=== PATIENT | male | born 2000 | race Caucasian/White ===

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

== ENCOUNTER 2020-10-31 08:07 | Outpatient (CLI) | payer OTHER, SELFPAY ==
--- NOTE | ~2020-10-31 | CT_ITS ---
EXAMINATION: CT brain wo con DATE: 10/31/2020 08:31 INDICATION: Right facial numbness. Right eyelid weakness. TECHNIQUE: Computed tomography (CT) of the head was performed without intravenous contrast. The mA wa s adjusted according to patient size. Iterative reconstruction technique was employed. The dose-lengt h product was 681.00 mGy-cm. COMPARISON: None FINDINGS: There is no intracranial hemorrhage, acute infarction, or abnormal intracranial mass lesion . The ventricles are normal in size. There is mild mucosal thickening in the ethmoid sinuses. The mas toid air cells are normal. The orbits are normal. IMPRESSION: 1. Normal brain. Reviewed, dictated and finalized at [facility]. IMPRESSION: 1. Normal brain.
== END 2020-10-31 08:08 | disposition home or self-care (01) ==
LOC: ANHIMG 08:12
PROVIDERS: PCP Family Medicine; Visit Provider Physician Assistant
DX: R20.0 Anesthesia of skin (principal); H02.401 Unspecified ptosis of right eyelid
CPT/HCPCS: 70450

== ENCOUNTER 2020-11-29 17:56 | Emergency (ER) | payer OTHER, SELFPAY ==
--- NOTE | ~2020-11-29 | US_ITS ---
EXAMINATION: US scrotum doppler DATE: 11/29/2020 18:39 INDICATION: Right testicular swelling and pain. TECHNIQUE: Grayscale and Doppler ultrasound images of the testes were obtained. COMPARISON: None. FINDINGS: The right testis measures 4.1 x 4.8 x 2.3 cm. The left testis measures 4.4 x 3.0 x 2.9 cm. There is normal vascular flow to both testes. The right epididymis is normal with normal vascular nancy w. The left epididymis is normal with normal vascular flow. There is no varicocele or hydrocele. IMPRESSION: 1. Normal testes. Reviewed, dictated and finalized at location [facility]. IMPRESSION: 1. Normal testes.
[2020-11-29 17:57] VITALS: BP 134/74; PULSE 79; RESP 16; TEMP 36; O2SAT 99
--- NOTE | 2020-11-29 18:28 | ED.MALEGU ---
HPI - Male Genitourinary General Chief complaint: Urogenital-Male Stated complaint: enlarged testicle Time Seen by Provider: 11/29/20 18:01 Source: patient Mode of arrival: ambulatory Limitations: no limitations History of Present Illness HPI Narrative: Patient is a 20 year old male who presents with right testicular pain and swelling. Patient reports swelling to testicle x 4 days. Patient reports being seen in Urgent Care today and sent to ED for further evaluation. Patient denies urinary complaints. Denies unprotected sex or penile discharge. Denies taking over the counter medication use prior to arrival. MD Complaint: testicle swelling Related Data Allergies Allergy/AdvReac Type Severity Reaction Status Date / Time No Known Allergies Allergy Verified 11/09/20 09:16 Review of Systems Review of Systems: Narrative: CONSTITUTIONAL: Denies fever, chills, or sweats. EYES: Denies visual changes, redness, or discharge. ENT: Denies rhinorrhea, congestion, sore throat, or otalgia. CARDIOVASCULAR: Denies chest pain, palpitations, or edema. RESPIRATORY: Denies cough or dyspnea. GASTROINTESTINAL: Denies abdominal pain, nausea, vomiting, or diarrhea. GENITOURINARY: Denies dysuria or hematuria. Reports right testicular swelling SKIN: Denies rash or itching. MUSCULOSKELETAL: Denies back pain, joint pain, or myalgia. NEUROLOGIC: Denies headache, numbness, dizziness, or weakness. PSYCHIATRIC: Denies anxiety or depression. PMFSH Past Medical History Medical History FH: hyperlipidemia Surgical History Surgical History History of circumcision History of wisdom tooth extraction Social History Social History (Updated 11/29/20 @ 18:32 by ERIC Manrique) Smoking status: Never smoker Alcohol intake: never Substance use: never Living arrangements: with family Spiritual care concerns: No Agree to blood products: Yes Comments At the time of signature, I have reviewed and agree with nursing past medical, surgical, social, and family history unless otherwise noted. Please see nursing chart for further information. There is no relevant family history pertinent to the presenting complaint. Exam Narrative: Exam Narrative: GENERAL: Well-appearing, well-nourished, and in no acute distress. HEAD: Normocephalic, atraumatic. EYES: EOMI. No redness or drainage. Conjunctiva are normal. ENT: Mucous membranes pink and moist. CHEST: No respiratory distress. HEART: Regular rate and rhythm. GI: Soft, nontender without rebound, or guarding. : Mild edema to right testicle, no tenderness with palpation MUSCULOSKELETAL: No bony tenderness. EXTREMITIES: Normal range of motion. No edema. SKIN: Warm, dry, no rash. NEURO: No focal deficits. Alert and oriented x3. Gait steady. PSYCH: Normal affect. No signs of depression or anxiety. Course Vital Signs Vital signs: Vital Signs Temperature 36.0 C L 11/29/20 17:57 Pulse Rate 79 11/29/20 17:57 Respiratory Rate 16 11/29/20 17:57 Blood Pressure 134/74 11/29/20 17:57 Pulse Oximetry 99 11/29/20 17:57 Temperature 36.0 C L 11/29/20 17:57 Pulse Rate 79 11/29/20 17:57 Respiratory Rate 16 11/29/20 17:57 Blood Pressure 134/74 11/29/20 17:57 Pulse Oximetry 99 11/29/20 17:57 Reviewed. Patient has been instructed to follow-up with his PCP regarding his blood pressure. MDM - Male Genitourinary Lab Data Labs: Lab Results 11/29/20 11/29/20 Range/Units 19:14 19:38 Urine Color Yellow (Yellow) Urine Appearance Clear (Clear) Urine pH 7.0 (5.0-9.0) Ur Specific [place] 1.017 (1.001-1.035) Urine Protein Negative (Negative) mg/dL Urine Glucose (UA) Negative (Negative) mg/dL Urine Ketones Negative (Negative) mg/dL Ur Blood (Man) Negative (Negative) Urine Nitrate Negative (Negative) Urine Bilirubin
[2020-11-29 19:36] LABS: Add Urine Microscopic? NO; Appearance Urine Clear (Clear); Bilirubin Urine Negative (Negative); Blood Urine Negative (Negative); Color Urine Yellow (Yellow); Glucose Urine UA Negative (Negative); Ketones Urine Negative (Negative); Leukocyte Esterase Ur Negative LEU/UL (Negative); Nitrate Urine Negative (Negative); Protein Urine Negative (Negative); Specific Grav Ur 1.017 (1.001-1.035); Urobilinogen Urine Negative mg/dL (<2.0)
== END 2020-11-29 20:18 | disposition home or self-care (01) ==
PROVIDERS: Emergency Provider Nurse Practitioner; PCP Family Medicine
DX: N50.811 Right testicular pain (principal); E78.5 Hyperlipidemia, unspecified
CPT/HCPCS: 76870; 81003; 87491; 87591; 93976; 99284

== ENCOUNTER 2024-06-06 09:56 | Emergency (ER) | payer OTHER, SELFPAY ==
[2024-06-06 10:37] VITALS: BP 126/83; PULSE 67; RESP 16; TEMP 36.6; O2SAT 99
--- NOTE | 2024-06-06 11:19 | ED.EAR ---
HPI - Ear Problem General Chief complaint: Ear Stated complaint: Ear Pain Time Seen by Provider: 06/06/24 11:11 Source: patient and RN notes reviewed Mode of arrival: ambulatory Limitations: no limitations History of Present Illness HPI Narrative: Patient presents today complaining of bilateral ear fullness and decreased hearing x4 days. Denies pain or drainage. Left is worse than right. He has tried Sudafed without relief. Related Data Allergies Allergy/AdvReac Type Severity Reaction Status Date / Time No Known Allergies Allergy Verified 06/06/24 10:34 Review of Systems Review of Systems: CONSTITUTIONAL: Denies body aches, fever, chills, or sweats. EYES: Denies visual changes, redness, or discharge. ENT: Denies rhinorrhea, congestion, sore throat, or otalgia.+ bilateral ear fullness and decreased hearing CARDIOVASCULAR: Denies chest pain, palpitations, or edema. RESPIRATORY: Denies cough or dyspnea. GASTROINTESTINAL: Denies abdominal pain, nausea, vomiting, or diarrhea. GENITOURINARY: Denies dysuria or hematuria. SKIN: Denies rash, itching, or wounds. MUSCULOSKELETAL: Denies back pain, joint pain, or myalgia. NEUROLOGIC: Denies headache, numbness, tingling, or weakness. PSYCH: Denies depression or anxiety. PMFSH Past Medical History Medical History FH: hyperlipidemia Surgical History Surgical History History of wisdom tooth extraction History of circumcision Social History Social History Smoking status: Never smoker Alcohol intake: never Substance use: never Living arrangements: with family Spiritual care concerns: No Agree to blood products: Yes Comments At time of signature, I have reviewed and agree with nursing past medical, surgical, social and family history unless otherwise noted. Please see nursing chart for further information. There is no relevant family history pertinent to the presenting complaint Exam Narrative: GENERAL: Well-appearing, well-nourished, and in no acute distress. HEAD: Normocephalic, atraumatic. EYES: EOMI. No redness or drainage. Conjunctivae normal. ENT: Mucous membranes pink and moist. Nares clear. Bilateral middle ear effusions without evidence of bacterial infection. NECK: Normal AROM. CHEST: No respiratory distress. EXTREMITIES: Normal range of motion. No edema. SKIN: Warm, dry, no rash. Capillary refill normal. Normal skin turgor. NEURO: No focal deficits. Alert and oriented x3. Gait steady. PSYCH: Normal affect. No signs of depression or anxiety. Course Course Level of Care: Express Care Visit Vital Signs Vital signs: Vital Signs Temperature 97.8 F 06/06/24 10:37 Pulse Rate 67 06/06/24 10:37 Respiratory Rate 16 06/06/24 10:37 Blood Pressure 126/83 06/06/24 10:37 Pulse Oximetry 99 06/06/24 10:37 Oxygen Delivery Room Air 06/06/24 10:37 Temperature 97.8 F 06/06/24 10:37 Pulse Rate 67 06/06/24 10:37 Respiratory Rate 16 06/06/24 10:37 Blood Pressure 126/83 06/06/24 10:37 Pulse Oximetry 99 06/06/24 10:37 Oxygen Delivery Room Air 06/06/24 10:37 Reviewed Medical Decision Making MDM Narrative Medical decision making narrative: Patient has bilateral serous effusions. He will be treated with short course of prednisone. [id number] medications have also been discussed. Anticipatory guidance given. Differential Diagnosis Differential Diagnosis: Otitis media, otitis externa, ruptured TM, serous otitis, cerumen impaction Vital Signs Vital Signs: Vital Signs Temperature 97.8 F 06/06/24 10:37 Pulse Rate 67 06/06/24 10:37 Respiratory Rate 16 06/06/24 10:37 Blood Pressure 126/83 06/06/24 10:37 Pulse Oximetry 99 06/06/24 10:37 Oxygen Delivery Room Air 06/06/24 10:37 Temperature 97.8 F 06/06/24 10:37 Pulse Rate 67 06/06/24 10:37 Respiratory Rate 16 06/06/24 10:37 Blood Pressure 126/83 06/06/24 10:37 Pulse Oximetry 99 06/06/24 10:37 Oxygen Delivery Room Air 06/06/24 10:37 Critical Care Time Critical Care Time Critical Care Time: No Discharge Plan Discharge Clinical Impression: Acute serous otitis media, bilateral Patient Disposition: Home, Self-Care Condition: Stable Instructions: Fluid In The Ear (Serous Otitis Media) (ED) Additional Instructions: Please take the prednisone as prescribed. You may also consider a steroid nasal spray such as Flonase. Before your flight if you are still feeling pressure in your ears, you may consider using some Afrin and trying to gently equalize your ears. Follow-up with your PCP if symptoms are not improving. Your blood pressure was elevated above 120/80 today at Urgent Care. This puts you above the threshold for follow up. Please schedule a followup visit with your personal physician as soon as possible, for further evaluation and treatment. Even blood pressure exceeding 120/80 may indicate pre-hypertension. Patient Language: [place] Prescriptions: New prednisone 20 mg tablet 40 mg PO DAILY 5 Days Qty: 10 0RF Follow-up/Referrals: PHYSICIAN,[employer] MANAGER [Primary Care Provider] - Time of Disposition: 11:23
== END 2024-06-06 11:25 | disposition home or self-care (01) ==
PROVIDERS: Emergency Provider Nurse Practitioner
DX: H65.03 Acute serous otitis media, bilateral (principal)
CPT/HCPCS: 99213; G0463